=== PATIENT | female | born 2000 | race African-American/Black ===

== ENCOUNTER 2024-09-03 13:24 | Outpatient (CLI) | payer BC | END 2024-09-03 13:25 | disposition home or self-care (01) | LOC: CSHMAMMO 13:24 | PROVIDERS: ATTEND Nurse Practitioner Women's Health | DX: M81.0 Age-related osteoporosis without current pathological fracture (principal); Z79.3 Long term (current) use of hormonal contraceptives | CPT/HCPCS: 77080 ==